=== PATIENT | female | born 1975 | race Two or more races ===

== ENCOUNTER 2022-08-15 09:47 | Inpatient (IN) | payer OTHER ==
[~2022-08-15] VITALS: Ht 170.2 cm; Wt 90.7 kg
[2022-08-18] MEDS ORDERED: YUVAFEM10 MCG (15:29)
== END 2022-08-19 11:23 | disposition home or self-care (01) | DRG 743 ==
LOC: OB/GYN 08-18 08:15 → O/R 08-18 14:51 → OB/GYN 08-18 15:30
PROVIDERS: ADMIT Obstetrics & Gynecology Gynecologic Oncology; ATTEND Obstetrics & Gynecology Gynecologic Oncology
PROC: 0UT74ZZ Resection of Bilateral Fallopian Tubes, Percutaneous Endoscopic Approach (ICD-10-PCS; 2022-08-18)
PROC: 0UT24ZZ Resection of Bilateral Ovaries, Percutaneous Endoscopic Approach (ICD-10-PCS; 2022-08-18)
PROC: 07BC4ZZ Excision of Pelvis Lymphatic, Percutaneous Endoscopic Approach (ICD-10-PCS; 2022-08-18)
PROC: 3E1M48Z Irrigation of Peritoneal Cavity using Irrigating Substance, Percutaneous Endoscopic Approach (ICD-10-PCS; 2022-08-18)
PROC: 0UT94ZZ Resection of Uterus, Percutaneous Endoscopic Approach (ICD-10-PCS; principal; 2022-08-18 15:30)
DX: D27.0 Benign neoplasm of right ovary (principal); N84.1 Polyp of cervix uteri; N72 Inflammatory disease of cervix uteri; Z20.822 Contact with and (suspected) exposure to COVID-19